=== PATIENT | female | born 1950 | race Caucasian/White ===

== ENCOUNTER 2022-02-21 11:44 | Day surgery (SDC) | payer MEDICARE, MEDICAID, SELFPAY ==
[2022-02-21 12:20] VITALS: BP 160/82; PULSE 72; RESP 16; TEMP 36.5; O2SAT 97
[2022-02-21] MEDS: Tropicam./Phenyleph. (1/2.5%) 5 ML BTL OS ×3 (12:58→13:10)
--- NOTE | 2022-02-21 13:20 | W.ANESPRE ---
General Info Date of Service Date Performed: 02/21/22 Height: 5 ft Weight: 86.1 kg Body Mass Index (BMI): 37.0 Surgical Procedure: Operation Date: 02/21/22 15:40 Proposed Procedure Side Surgeon p Cataract Extraction with IOL Implant Left Parminder Paris MD Meds Allergies and Home Medications Allergies Allergy/AdvReac Type Severity Reaction Status Date / Time Penicillins Allergy Intermediate Skin Rash Unverified 02/18/22 13:58 fentanyl AdvReac Intermediate Nausea Unverified 02/18/22 13:44 morphine AdvReac Intermediate Nausea Unverified 02/18/22 13:44 aspirin AdvReac upset Unverified 02/18/22 13:58 stomach Home Medication Medication Instructions Recorded ibuprofen 200 mg tablet 200 mg PO DAILY PRN 02/18/22 Current Visit Medications: Current Medications Generic Name Dose Route Start Last Admin Trade Name Freq PRN Reason Stop Dose Admin Acetaminophen 1,000 mg 02/21/22 06:00 Acetaminophen 500 Mg Tab PO Q4H PRN PRN Miscellaneous Medication 0 ml 02/21/22 06:00 Prednisolone 1%, Moxifloxacin 0.5%, Nepafenac 0.1% 5ml Btl OS DIRECTED MARIAA Miscellaneous Medication 0 ml 02/21/22 06:00 02/21/22 13:10 Tropicam./Phenyleph. (1/2.5%) 5 Ml Btl OS 1 drp DIRECTED MARIAA Administration Tetracaine HCl 0 ml 02/21/22 06:00 Tetracaine 0.5% 4 Ml Btl OS DIRECTED MARIAA PFSH Active Problems Active Problems: Problem Status Onset Code Cortical cataract of left eye H26.9 Nuclear sclerotic cataract of left eye H25.12 Medical History Medical History Blood pressure elevated without history of HTN Breast lump Chronic sinusitis Constipation Dizziness Essential hypertension Gallstone GERD (gastroesophageal reflux disease) Gluten-sensitive enteropathy Headache History of depression HLD (hyperlipidemia) Insomnia Osteoarthritis Surgical History Surgical History Hx laparoscopic cholecystectomy Hx of appendectomy Hx of colonoscopy Hx of hysterectomy Hx of lumpectomy Tobacco Smoking/Tobacco Use Status: Never Alcohol Alcohol Intake: never Substance Use Substance use: Never Substance use type: does not use Vital Signs and Lab Results Vital Signs Most Recent Vital Signs in EMR: Most Recent Vital Signs Temp Pulse Resp BP Pulse Ox 36.5 C 72 16 160/82 H 97 02/21/22 12:20 02/21/22 12:20 02/21/22 12:20 02/21/22 12:20 02/21/22 12:20 Lab Results Blood Type / Crossmatch: No Data to Display Complete Blood Count: No Data to Display Complete Metabolic Panel: No Data to Display Liver Function Panel: No Data to Display Coagulation Panel: No Data to Display Cardiac Panel: No Data to Display Arterial Blood Gas: No Data to Display Venous Blood Gas: No Data to Display Pancreas Panel: No Data to Display Thyroid Panel: No Data to Display Infectious Disease: No Data to Display Blood Cultures: No Data to Display Toxicology Panel: No Data to Display Anesthesia Assessment and Plan Anesthesia History Personal History: No History of Anesthesia Complications Family History: No Family History of Anesthesia Complications Exercise Tolerance Exercise Tolerance: Metabolic Equivalents>4 Pertinent Negatives Pertinent Negatives: No Symptoms of GERD Cardiac & Pulmonary Exam Cardiac Exam: Normal S1/S2 Heart Sounds Pulmonary Exam: Clear Bilateral Breath Sounds Implantable Cardiac Device Does patient have a Pacemaker or an ICD?: No Airway Exam Known Difficult Airway: No Mallampati Class: 1 Mouth Opening: Normal (> 3cm) Thyromental Distance: Greater than 3 cm Neck Range of Motion: Full ROM Neck Circumference: Normal Teeth Condition: Normal Dentition ASA Classification ASA Score: ASA 2 Emergency Case?: No NPO Status NPO Status: NPO Clears >2 hours, Solids >8 hours Anesthesia Plan Resuscitation Status: Full Code Anesthesia Technique: MAC Anesthesia Airway Planned: Natural Airway Monitors Used: Standard Monitors
[2022-02-21 13:22] VITALS: BMI 37.0
[2022-02-21] MEDS: Tetracaine 0.5% 4 ML BTL OS (14:36)
[2022-02-21] MEDS: Balanced Salt Soln.-PLUS 500 ML BAG (14:37)
[2022-02-21] MEDS: Lidocaine 2% Jelly 6 ML SYR (14:38)
[2022-02-21] MEDS: Povidone-Iodine Ophth 30 ML BTL (14:40)
--- NOTE | 2022-02-21 14:53 | W.PM.DSUDISC ---
Discharge Plan Disposition Patient Disposition: HOME Condition: Good Discharge Details Attending Provider: Parminder Paris Primary Care Provider: Vladimir Catalan Home Meds and New Rx's Prescriptions: No Action ibuprofen 200 mg Tablet 200 mg PO DAILY PRN Discharge Instructions Stand Alone Forms: Post-op Topical Cataract, Celia Larry (DSU) Discharge Orders Discharge Orders: Discharge Order (Routine); Ordered 02/21/22 Ordered By: Parminder Paris DS: Diagnosis Discharge Diagnosis (1) Cortical cataract of left eye: Status: Resolved (2) Nuclear sclerotic cataract of left eye: Status: Resolved
--- NOTE | 2022-02-21 14:54 | ROE_ITS ---
Date of service: 02/21/22 Time of Service: 14:54 Operative Note Operative Note DATE OF PROCEDURE: 02/21/22 PRE-OP DIAGNOSIS: Nuclear/cortical cataract, POST-OP DIAGNOSIS: same PROCEDURE: Cataract extraction using phacoemulsification with intraocular lens implant, left eye SURGEON: Parminder Paris ANESTHESIA TYPE: Local By Surgeon and MAC Refer to Anesthesia Record PATHOLOGY: none sent COMPLICATIONS: None Patient was transported to: same day Patient's condition: stable Implants: Nikunj and Nikunj / [employer] Tecnis [id number] Indications: Progressive decreased vision due to cataract, left eye Procedure Description: CATARACT SURGERY OPERATIVE REPORT PREOPERATIVE DIAGNOSIS: 1. Nuclear/cortical cataract, left eye POSTOPERATIVE DIAGNOSIS: Same OPERATION: 1. Cataract extraction using phacoemulsification with posterior chamber intraocular lens implant, left eye. IOL: IOL Compo Caster/Model: Nikunj & Nikunj / JAYLEN Tecnis [id number] IOL Power: + 22.5 diopters IOL Serial Number: [id number] Optic Diameter: 6.0 mm Haptic/Overall Diameter: 13.0 mm PHACO INFO: FelixGezlongon Vision System with OZil and Active Fluidics Cumulative Dispersed Energy (CDE): 5.07 seconds SURGEON: Parminder Paris MD, SCOT ANESTHESIA: Monitored [facility] (MAC), with local sub-tenon's anesthetic infiltration COMPLICATIONS: None SPECIMENS: None INDICATIONS FOR PROCEDURE: The patient is a 71-year-old lady with history of diminished visual acuity in her left eye secondary to the development of nuclear/cortical cataract. She is significantly symptomatic that she desires cataract surgery and attempt to improve and maximize her vision. The option of cataract surgery was offered to the patient and she wished to proceed PROCEDURE: The correct surgical eye was identified and marked as the left eye and the pupil was dilated in the preoperative area using mydriatics and cycloplegics. The dilated pupil size was 7.0 mm. The patient elected to proceed without oral sedation. The patient was brought to the operating room where cardiopulmonary monitoring was instituted and surgical time-out was performed, confirming the correct operative eye and IOL power. Topical anesthesia was administered and ophthalmic povidone-iodine 5% was instilled into the conjunctival fornices. Lidocaine gel was applied to the cornea and the melia-ocular area was prepped with Betadine 10% solution and draped in the usual sterile fashion for intraocular surgery, including an aperture drape. A Tegaderm transparent film dressing was cut in half and used to cover the lashes and lid margins. Care was taken to sequester the lashes and lid margins under the Tegaderm dressing. A lid speculum was placed between the lids of the operative eye and the Felix LuxOR Revalia operating microscope was maneuvered into position. Huy scissors were then used to make a conjunctival buttonhole approximately 6mm posterior to the limbus in the inferonasal quadrant. Blunt dissection was carried out to expose bare sclera, and a blunt-tipped sub-tenon?s anesthesia cannula was introduced and passed posteriorly along the globe where non- preserved plain lidocaine was injected into posterior sub-Tenon?s space. A efrain eport knife was used to make a paracentesis port superiorly/superiortemporally. Intraocular phenylephrine/lidocaine was injected int the anterior chamber.. The anterior chamber was filled with viscoelastic. A keratome knife was used to construct a 2-plane near-clear corneal tunnel extending 2.0mm into clear cornea temporally. A flap was raised on the anterior capsule and capsulorhexis forceps were used to complete a continuous curvilinear capsulorhexis of 5.0 mm. Balanced salt solution was then used to perform cortical cleaving hydrodissection and nuclear hydrodelineation until the lens could be freely rotated within the capsular bag. The lens nucleus was then disassembled and removed within the capsular bag and iris plane using phacoemulsification. Residual cortical material was removed using the 45-degree angled silicone I/A tip with 0.3mm port. The posterior capsule was carefully polished to remove as much residual lens epithelial cells as safely possible. The capsular bag was then inflated and the anterior chamber deepened with viscoelastic. The lens implant described above was inserted into the capsular bag using the JAYLEN [place] Injector. A Kuglen hook was used to dial the IOL into position. Residual viscoelastic was then removed first from posterior to the IOL, then from the anterior chamber using the I/A handpiece. The lens implant was noted to center nicely within the capsular bag. The incisions were stromally hydrated, and the anterior chamber was reformed using BSS. Then 0.5cc of moxifloxacin 1.0mg/ml were injected into the capsular bag and anterior chamber. The incisions were checked with a Weck spear and found to be secure. Several drops of ophthalmic povidone-iodine 5% were then applied to the eye followed by two drops of Imprimis combination prednisolone/moxifloxacin/nepafenac solution. The drapes were removed and a clear plastic protective eye shield was placed over the eye. The patient was then returned to Same Day Surgery in stable condition.
[2022-02-21 14:55] VITALS: BP 145/82; PULSE 56; RESP 18; TEMP 36.6; O2SAT 99
[2022-02-21] MEDS: Acetaminophen 500 MG TAB 1000 MG PO (15:00)
--- NOTE | 2022-02-21 15:15 | W.ANESPOSTOP ---
Postoperative Evaluation Date, Time and Location Date Performed: 02/21/22 Time Performed: 15:15 Patient Location: Day Surgery Unit Vital Signs Most Recent Imported Vital Signs: Most Recent Vital Signs Temp Pulse Resp BP Pulse Ox 36.6 C 56 L 18 145/82 H 99 02/21/22 14:55 02/21/22 14:55 02/21/22 14:55 02/21/22 14:55 02/21/22 14:55 Pain Score Most Recent Pain Score: Most Recent Pain Score Pain Level 6 02/21/22 14:55 Assessment Mental Status: Awake (Alert & Oriented to Patient Baseline) Airway and Respiratory Function: Patent airway with normal (patient baseline) respiratory exam Cardiovascular Function: Hemodynamically Stable Hydration Status: Adequately Hydrated Nausea & Vomiting: No Nausea or Vomiting Pain: Pain is tolerable per patient Peripheral Nerve Block: Patient did not receive a nerve block
== END 2022-02-21 15:20 | disposition home or self-care (01) ==
PROVIDERS: PCP Family Medicine; Visit Provider Ophthalmology
PROC: (CPT 66984; principal; 2022-02-21 15:30)
DX: H25.12 Age-related nuclear cataract, left eye (principal)
CPT/HCPCS: 66984; V2632

== ENCOUNTER 2022-03-07 10:30 | Day surgery (SDC) | payer MEDICARE, MEDICAID, SELFPAY ==
[2022-03-07 10:34] VITALS: BP 140/87; PULSE 70; RESP 16; TEMP 36.3; O2SAT 98
[2022-03-07] MEDS: Tropicam./Phenyleph. (1/2.5%) 5 ML BTL OD ×3 (10:42→10:54)
--- NOTE | 2022-03-07 11:10 | W.ANESPRE ---
General Info Date of Service Date Performed: 03/07/22 Height: 5 ft Weight: 86.3 kg Body Mass Index (BMI): 37.1 Surgical Procedure: Operation Date: 03/07/22 13:40 Proposed Procedure Side Surgeon p Cataract Extraction with IOL Implant Right Parminder Paris MD Meds Allergies and Home Medications Allergies Allergy/AdvReac Type Severity Reaction Status Date / Time Penicillins Allergy Intermediate Skin Rash Unverified 03/07/22 10:44 fentanyl AdvReac Intermediate Nausea Unverified 03/07/22 10:44 morphine AdvReac Intermediate Nausea Unverified 03/07/22 10:44 aspirin AdvReac upset Unverified 03/07/22 10:44 stomach Home Medication Medication Instructions Recorded ibuprofen 200 mg tablet 200 mg PO DAILY PRN 02/18/22 montelukast 10 mg tablet 10 mg PO DAILY 03/04/22 Current Visit Medications: Current Medications Generic Name Dose Route Start Last Admin Trade Name Freq PRN Reason Stop Dose Admin Acetaminophen 1,000 mg 03/07/22 06:00 Acetaminophen 500 Mg Tab PO Q4H PRN PRN Miscellaneous Medication 0 ml 03/07/22 06:00 Prednisolone 1%, Moxifloxacin 0.5%, Nepafenac 0.1% 5ml Btl OD DIRECTED MARIAA Miscellaneous Medication 0 ml 03/07/22 06:00 03/07/22 10:54 Tropicam./Phenyleph. (1/2.5%) 5 Ml Btl OD 1 drp DIRECTED MARIAA Administration Tetracaine HCl 0 ml 03/07/22 06:00 Tetracaine 0.5% 4 Ml Btl OD DIRECTED MARIAA PFSH Active Problems Active Problems: Problem Status Onset Code Nuclear sclerotic cataract of left eye H25.12 Cortical cataract of left eye H26.9 Cortical cataract of right eye H26.9 Nuclear sclerotic cataract of right eye H25.11 Medical History Medical History Blood pressure elevated without history of HTN Breast lump Chronic sinusitis Constipation Dizziness Essential hypertension Gallstone GERD (gastroesophageal reflux disease) Gluten-sensitive enteropathy Headache History of depression HLD (hyperlipidemia) Insomnia Osteoarthritis Surgical History Surgical History (Updated 03/07/22 @ 12:22 by Parminder Paris MD) History of cataract surgery Hx laparoscopic cholecystectomy Hx of appendectomy Hx of colonoscopy Hx of hysterectomy Hx of lumpectomy Tobacco Smoking/Tobacco Use Status: Never Alcohol Alcohol Intake: never Substance Use Substance use: Never Substance use type: does not use Vital Signs and Lab Results Vital Signs Most Recent Vital Signs in EMR: Most Recent Vital Signs Temp Pulse Resp BP Pulse Ox 36.3 C L 70 16 140/87 98 03/07/22 10:34 03/07/22 10:34 03/07/22 10:34 03/07/22 10:34 03/07/22 10:34 Lab Results Blood Type / Crossmatch: No Data to Display Complete Blood Count: No Data to Display Complete Metabolic Panel: No Data to Display Liver Function Panel: No Data to Display Coagulation Panel: No Data to Display Cardiac Panel: No Data to Display Arterial Blood Gas: No Data to Display Venous Blood Gas: No Data to Display Pancreas Panel: No Data to Display Thyroid Panel: No Data to Display Infectious Disease: No Data to Display Blood Cultures: No Data to Display Toxicology Panel: No Data to Display Anesthesia Assessment and Plan Anesthesia History Personal History: No History of Anesthesia Complications Family History: No Family History of Anesthesia Complications Exercise Tolerance Exercise Tolerance: Metabolic Equivalents>4 Pertinent Negatives Pertinent Negatives: No Symptoms of GERD, No Major Cardiovascular Symptoms or Complaints, No Major Pulmonary Symptoms or Complaints and No History of CVA/TIA Cardiac & Pulmonary Exam Cardiac Exam: Normal S1/S2 Heart Sounds Pulmonary Exam: Clear Bilateral Breath Sounds Implantable Cardiac Device Does patient have a Pacemaker or an ICD?: No Airway Exam Known Difficult Airway: No Mallampati Class: 1 Mouth Opening: Normal (> 3cm) Thyromental Distance: Greater than 3 cm Neck Range of Motion: Full ROM Neck Circumference: Normal Teeth Condition: Normal Dentition ASA Classification ASA Score: ASA 2 Emergency Case?: No NPO Status NPO Status: NPO Clears >2 hours, Solids >8 hours Anesthesia Plan Resuscitation Status: Full Code Anesthesia Technique: MAC Anesthesia Airway Planned: Natural Airway Monitors Used: Standard Monitors
[2022-03-07] MEDS: Tetracaine 0.5% 4 ML BTL OD (12:03)
[2022-03-07] MEDS: Balanced Salt Soln.-PLUS 500 ML BAG (12:04)
[2022-03-07] MEDS: Duovisc Viscoelastic System EACH 1 EACH (12:05)
[2022-03-07] MEDS: Lidocaine 2% Jelly 6 ML SYR (12:05)
[2022-03-07] MEDS: Povidone-Iodine Ophth 30 ML BTL (12:06)
--- NOTE | 2022-03-07 12:21 | W.PM.DSUDISC ---
Date of service: 03/07/22 Time of Service: 12:21 Discharge Plan Disposition Patient Disposition: HOME Condition: Good Discharge Details Attending Provider: Parminder Paris Primary Care Provider: Vladimir Catalan Home Meds and New Rx's Prescriptions: No Action montelukast 10 mg Tablet 10 mg PO DAILY ibuprofen 200 mg Tablet 200 mg PO DAILY PRN Discharge Instructions Stand Alone Forms: Post-op Topical Cataract, Celia Larry (DSU) Discharge Orders Discharge Orders: Discharge Order (Routine); Ordered 03/07/22 Ordered By: Parminder Prais DS: Diagnosis Discharge Diagnosis (1) Cortical cataract of right eye: Status: Resolved (2) Nuclear sclerotic cataract of right eye: Status: Resolved
[2022-03-07 12:22] VITALS: BP 153/75; PULSE 60; RESP 18; TEMP 36.4; O2SAT 99
--- NOTE | 2022-03-07 12:22 | W.PM.OP ---
Date of service: 03/07/22 Time of Service: 12:22 Operative Note Operative Note DATE OF PROCEDURE: 03/07/22 PRE-OP DIAGNOSIS: Nuclear/cortical cataract, right eye POST-OP DIAGNOSIS: same PROCEDURE: Cataract extraction using phacoemulsification with intraocular lens implant, right eye SURGEON: Parminder Paris ANESTHESIA TYPE: Local By Surgeon and MAC Refer to Anesthesia Record ESTIMATED BLOOD LOSS: 0 PATHOLOGY: none sent COMPLICATIONS: None Patient was transported to: same day Patient's condition: stable Implants: Nikunj & Nikunj/JAYLEN Tecnis [id number] Indications: Progressive visual loss due to cataract, right eye Procedure Description: CATARACT SURGERY OPERATIVE REPORT PREOPERATIVE DIAGNOSIS: 1. Nuclear/cortical cataract, right eye POSTOPERATIVE DIAGNOSIS: Same OPERATION: 1. Cataract extraction using phacoemulsification with posterior chamber intraocular lens implant, right eye. IOL: IOL Chair Post Machine Operator/Model: Nikunj & Nikunj / JAYLEN Tecnis [id number] IOL Power: + 23.5 diopters IOL Serial Number: [id number] Optic Diameter: 6.0mm Haptic/Overall Diameter: 13.0mm PHACO INFO: Felix [employer] Vision System with OZil and Active Fluidics Cumulative Dispersed Energy (CDE): 2.96 seconds SURGEON: Parminder Paris MD, SCOT ANESTHESIA: Monitored An[facility] (MAC), with local sub-tenon's anesthetic infiltration COMPLICATIONS: None SPECIMENS: None INDICATIONS FOR PROCEDURE: The patient is a 71-year-old lady with history of diminished visual acuity in her right eye secondary to development of nuclear/cortical cataract. She has already undergone cataract surgery in the left eye and is doing well postoperatively. She now presents for cataract surgery in the right eye. PROCEDURE: The correct surgical eye was identified and marked as the right eye and the pupil was dilated in the preoperative area using mydriatics and cycloplegics. The dilated pupil size was 7.0 mm. The patient elected to proceed without oral sedation. The patient was brought to the operating room where cardiopulmonary monitoring was instituted and surgical time-out was performed, confirming the correct operative eye and IOL power. Topical anesthesia was administered and ophthalmic povidone-iodine 5% was instilled into the conjunctival fornices. Lidocaine gel was applied to the cornea and the melia-ocular area was prepped with Betadine 10% solution and draped in the usual sterile fashion for intraocular surgery, including an aperture drape. A Tegaderm transparent film dressing was cut in half and used to cover the lashes and lid margins. Care was taken to sequester the lashes and lid margins under the Tegaderm dressing. A lid speculum was placed between the lids of the operative eye and the Felix LuxOR Revalia operating microscope was maneuvered into position. Huy scissors were then used to make a conjunctival buttonhole approximately 6mm posterior to the limbus in the inferonasal quadrant. Blunt dissection was carried out to expose bare sclera, and a blunt-tipped sub-tenon?s anesthesia cannula was introduced and passed posteriorly along the globe where non-preserved plain lidocaine was injected into posterior sub-Tenon?s space. A sideport knife was used to make a paracentesis port inferotemporally. Intraocular phenylephrine/lidocaine was injected into the anterior chamber. The anterior chamber was filled with viscoelastic. A keratome knife was used to construct a 2-plane near-clear corneal tunnel extending 2.0mm into clear cornea superiortemporally. A flap was raised on the anterior capsule and capsulorhexis forceps were used to complete a continuous curvilinear capsulorhexis of 5.0 mm. Balanced salt solution was then used to perform cortical cleaving hydrodissection and nuclear hydrodelineation until the lens could be freely rotated within the capsular bag. The lens nucleus was then disassembled and removed within the capsular bag and iris plane using phacoemulsification. Residual cortical material was removed using the I/A handpiece. The posterior capsule was carefully polished to remove as much residual lens epithelial cells as safely possible. The capsular bag was then inflated and the anterior chamber deepened with viscoelastic. The lens implant described above was inserted into the capsular bag using the JAYLEN [place] Injector. A Kuglen hook was used to dial the IOL into position. Residual viscoelastic was then removed first from posterior to the IOL, then from the anterior chamber using the I/A handpiece. The lens implant was noted to center nicely within the capsular bag. The incisions were stromally hydrated, and the anterior chamber was reformed using BSS. Then 0.5cc of moxifloxacin 1.0mg/ml were injected into the capsular bag and anterior chamber. The incisions were checked with a Weck spear and found to be secure. Several drops of ophthalmic povidone-iodine 5% were then applied to the eye followed by two drops of Imprimis combination prednisolone/moxifloxacin/nepafenac solution. The drapes were removed and a clear plastic protective eye shield was placed over the eye. The patient was then returned to Same Day Surgery in stable condition.
[2022-03-07 12:48] VITALS: BMI 37.1
--- NOTE | 2022-03-07 12:48 | W.ANESPOSTOP ---
Postoperative Evaluation Date, Time and Location Date Performed: 03/07/22 Time Performed: 12:48 Patient Location: Day Surgery Unit Vital Signs Most Recent Imported Vital Signs: Most Recent Vital Signs Temp Pulse Resp BP Pulse Ox 36.4 C L 60 18 153/75 H 99 03/07/22 12:22 03/07/22 12:22 03/07/22 12:22 03/07/22 12:22 03/07/22 12:22 Pain Score Most Recent Pain Score: Most Recent Pain Score Pain Level 0 03/07/22 12:22 Assessment Mental Status: Awake (Alert & Oriented to Patient Baseline) Airway and Respiratory Function: Patent airway with normal (patient baseline) respiratory exam Cardiovascular Function: Hemodynamically Stable Hydration Status: Adequately Hydrated Nausea & Vomiting: No Nausea or Vomiting Pain: Pt. Denies Any Pain Peripheral Nerve Block: Other (Local by Dr. Paris)
== END 2022-03-07 12:48 | disposition home or self-care (01) ==
LOC: SUR 10:30
PROVIDERS: PCP Family Medicine; Visit Provider Ophthalmology
PROC: (CPT 66984; principal; 2022-03-07 13:30)
DX: H25.11 Age-related nuclear cataract, right eye (principal); I10 Essential (primary) hypertension
CPT/HCPCS: 66984; V2632

== ENCOUNTER 2024-06-20 02:44 | Outpatient (CLI) | payer MEDICARE, MEDICAID, SELFPAY ==
--- NOTE | 2024-06-20 | DI.CT_ITS ---
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 COMPARISON: CT CT HEAD WO/W from 06/20/2024 TECHNIQUE: FINDINGS: VISUALIZED PARANASAL SINUSES: There is mucosal thickening and fluid level in the right maxillary sinu s consistent with acute sinusitis. There is also fluid in the sphenoid sinuses and ethmoidal air jeanne ls bilaterally. There is some mucosal thickening noted in the right frontal sinus. No obvious masto id effusions. NASOPHARYNX: Unremarkable ORODENTAL: Unremarkable. OROPHARYNX: Unremarkable. No masses evident. HYPOPHARYNX: Unremarkable. Valleculae and epiglottis and aryepiglottic folds appear normal. VOCAL CORDS: Unremarkable. No masses evident. Subglottic airway appears unremarkable. THYROID GLAND: Unremarkable. Normal size and no obvious nodules. SALIVARY GLANDS: Unremarkable. No significant findings in the parotid and submandibular glands. LYMPH NODES: There is no adenopathy evident in the neck and supraclavicular regions. OTHER: VISUALIZED LUNG APICES: No significant findings. IMPRESSION: 1. No significant focal findings in the soft tissues of neck. 2. No lymphadenopathy evident, given the history here. 3. Incidentally noted are findings of acute sinusitis in the right maxillary sinuses and sphenoid si nuses. RADIATION DOSE DELIVERED: 1,968.7mGy.cm Total DLP DATA REPOSITORY: All CT scans at this facility are submitted to the National Radiology Data Registry (NRDR) Dose Index Registry (DIR) with the [employer] (ACR). RADIATION OPTIMIZATION: All CT scans at this facility use at least one of these dose optimization te chniques: automated exposure control; mA and/or kV adjustment per patient size (includes targeted exa ms where dose is matched to clinical indication); or iterative reconstruction.
--- NOTE | 2024-06-20 | DI.CT_ITS ---
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 TECHNIQUE: Imaging Protocol: Both noninfused and contrast infused CT scans of the brain were perform ed. IV Contrast Dose =75 cc Axial computed tomography images with coronal and sagittal reformatted images were created and review ed COMPARISON: CT CT NECK W from 06/20/2024 FINDINGS: There are no skull fractures nor lytic skull lesions. There is a site of recent resection of the posterior left lower scalp. Postoperative changes at this level. No deep fistulous connection. No regional lymphadenopathy evident nor adenopathy in the pos terior triangle of the neck.. There are fluid levels in the right maxillary sinus as well as in the sphenoid sinuses mild mucosal t hickening in the right frontal sinus and mucosal thickening in ethmoidal air cells bilaterally; findi ngs consistent with acute sinusitis. There is no evidence of intracranial hemorrhage, mass effect, or shift of midline structures. There are no extra-axial fluid collections. The ventricles are not enlarged or shifted and there is no blo od within the ventricular system nor within the basal cisterns.There is symmetrical bifrontal atrophy . Also some atrophy of the anterior aspects of both temporal lobes at the level the middle cranial f ossae. There are no ring enhancing lesions in the brain and there is no abnormal meningeal enhancement, foca l or diffuse. IMPRESSION: Area of resection of the posterior left side of the scalp below the occipital bone. No significant enhancing intracranial findings. No obvious adenopathy. RADIATION DOSE DELIVERED: 1,968.7mGy.cm Total DLP DATA REPOSITORY: All CT scans at this facility are submitted to the National Radiology Data Registry (NRDR) Dose Index Registry (DIR) with the [employer] ([employer]). RADIATION OPTIMIZATION: All CT scans at this facility use at least one of these dose optimization te chniques: automated exposure control; mA and/or kV adjustment per patient size (includes targeted exa ms where dose is matched to clinical indication); or iterative reconstruction.
[2024-06-20 10:43] LABS: CREATININE 0.8 mg/dL (0.55-1.02); Estimated GFR 76.79 (mL/min/1.73m2)
[2024-06-20] MEDS: Normal Saline - Diluent 50 ML VIAL IJ (11:17)
[2024-06-20] MEDS: Omnipaque 350 MG/ML 500 ML BTL-Imaging package 100 ML IJ (11:18)
== END 2024-06-20 03:04 ==
PROVIDERS: PCP Family Medicine; Visit Provider Preventive Medicine Undersea and Hyperbaric Medicine
DX: C44.40 Unspecified malignant neoplasm of skin of scalp and neck (principal); J01.01 Acute recurrent maxillary sinusitis
CPT/HCPCS: 36415; 70491; 70470; 82565